=== PATIENT | female | born 1950 | race Two or more races ===

== ENCOUNTER 2024-12-26 16:23 | Emergency (ER) | payer MEDICARE ==
[~2024-12-26] VITALS: Ht 149.9 cm; Wt 47.7 kg
[2024-12-26 17:27] LABS: PLATELET COUNT (AUTO) 186 K/uL (150-450); RED BLOOD CELL COUNT(AUTO) 3.74 MIL/uL (4.00-5.20); RED CELL DISTRIBUTION WIDTH 13.6 % (11.5-14.5); WHITE BLOOD COUNT (AUTO) 6.7 K/uL (4.5-11.0)
[2024-12-26 17:34] LABS: CALCIUM, TOTAL 8.9 mg/dL (8.8-10.5); CREATININE 0.70 mg/dL (0.60-1.30); GLOMERULAR FILTR. RATE CALC > 60 mL/min (>60); GLUCOSE,RANDOM 91 mg/dL (70-110); SODIUM SERUM 140 mmol/L (136-145); UREA NITROGEN, BLOOD 11 mg/dL (7-18)
[2024-12-26 17:43] LABS: TROPONIN I-HIGH SENSITIVITY 5 ng/L (<51)
[2024-12-26 19:04] LABS: APPEARANCE,URINE CLEAR (CLEAR); GLUCOSE, URINE (UA) NEGATIVE (NEGATIVE); LEUKOCYTE ESTERASE ,URINE TRACE (NEGATIVE); NITRATE,URINE NEGATIVE (NEGATIVE); OCCULT BLOOD,URINE MODERATE (NEGATIVE); SPECIFIC GRAVITIY, URINE 1.010 (1.003-1.030)
[2024-12-26 19:12] LABS: SQUAMOUS EPITHELIAL CELL,UR Rare /LPF (None Seen)
[2024-12-26] MEDS ORDERED: POLY119P3 PO (20:48)
[2024-12-26] MEDS ORDERED: FAMO20 PO (20:48)
[2024-12-26 21:49] VITALS: BP 119/67; PULSE 76; RESP 16; TEMP 97.8; O2SAT 98
== END 2024-12-26 22:06 | disposition home or self-care (01) ==
LOC: EMS 16:23
DX: K29.60 Other gastritis without bleeding (principal); K59.00 Constipation, unspecified; E78.00 Pure hypercholesterolemia, unspecified; I10 Essential (primary) hypertension
CPT/HCPCS: 74018; 80048; 81001; 83690; 84484; 85025; 93005; 99285; 36415-L1; 36415-TC